=== PATIENT | male | born 1980 | race Hispanic/Latino ===

== ENCOUNTER 2021-05-24 09:17 | Emergency (ER) | payer SELFPAY ==
[2021-05-24] MEDS ORDERED: Cyclobenzaprine 10 MG TAB ONE (10:42)
[2021-05-24] MEDS ORDERED: Ketorolac Tromethamine 30 MG/ML VIAL ONE (10:42)
== END 2021-05-24 11:41 | disposition home or self-care (01) ==
LOC: ERS 09:17
DX: S39.012A Strain of muscle, fascia and tendon of lower back, initial encounter (principal); F17.210 Nicotine dependence, cigarettes, uncomplicated; X58.XXXA Exposure to other specified factors, initial encounter
CPT/HCPCS: 72100; 96372; J1885

== ENCOUNTER 2021-06-26 20:57 | Emergency (ER) | payer SELFPAY ==
[2021-06-26] MEDS ORDERED: Ketorolac Tromethamine 30 MG/ML VIAL ONE (22:01)
== END 2021-06-26 22:27 | disposition home or self-care (01) ==
LOC: ERS 20:57
DX: K02.9 Dental caries, unspecified (principal); F17.210 Nicotine dependence, cigarettes, uncomplicated
CPT/HCPCS: 96372; 99282; J1885